=== PATIENT | female | born 1960 | race Caucasian/White ===

== ENCOUNTER 2020-12-31 08:46 | Outpatient (CLI) | payer OTHER ==
[2020-12-31 10:18] LABS: #Eosinphils 0.2 10x3/uL (0.0-0.5); #Monocytes 0.6 10x3/uL (0.0-1.1); #Neutrophils 4.5 10x3/uL (1.5-8.4); %Basophils 0.3 % (0.0-2.0); %Eosinophils 1.9 % (0.0-6.0); %Lymphocytes 32.8 % (18.0-47.0); %Monocytes 7.2 % (0.0-10.0); %Neutrophils 57.5 % (40.0-75.0); Hemoglobin 14.1 g/dL (12.0-15.5); Mean Corpuscular HGB CONC 32.6 g/dL (32.0-36.0); Mean Corpuscular Hemoglobin 29.1 pg (27.0-33.0); Mean Corpuscular Volume 89.1 fl (81.6-98.3); Platelet Count 253 10x3/uL (150-450); RBC Distribution Width 13.8 % (11.5-14.5); Red Blood Cell (RBC) Count 4.85 10x6/uL (3.90-5.03); White Blood Cell (WBC) Count 7.8 10x3/uL (3.5-10.5)
[2020-12-31 17:21] LABS: SARS-CoV-2 PCR by NAA Not Detected (NotDetected)
== END 2020-12-31 08:47 | disposition home or self-care (01) ==
LOC: LABBT 08:46
PROVIDERS: ATTEND Orthopaedic Surgery Hand Surgery
DX: Z01.818 Encounter for other preprocedural examination (principal); M65.4 Radial styloid tenosynovitis [de Quervain]; M72.0 Palmar fascial fibromatosis [Dupuytren]; Z20.822 Contact with and (suspected) exposure to COVID-19
CPT/HCPCS: 85025; 93005; 93010; U0003; U0005

== ENCOUNTER 2021-01-07 10:03 | Day surgery (SDC) | payer OTHER ==
[2020-12-31 15:21] VITALS: BMI 26.7
[2021-01-07] MEDS ORDERED: Scopolamine 1.5 mg/72 hour Patch ONE (13:12)
[2021-01-07] MEDS ORDERED: Fentanyl 100 MCG/2 ML VIAL ONE ×3 (13:12→17:48)
[2021-01-07] MEDS ORDERED: ceFAZolin Sodium (SDC) 2 GM/100 ML BAG ONE (13:12)
[2021-01-07] MEDS ORDERED: Collagenase Clostridium Hist. 0.9 MG VIAL FS SCH (14:15)
[2021-01-07] MEDS ORDERED: Bupivacaine PF 0.5% 30 ML VIAL ONE (15:08)
[2021-01-07] MEDS ORDERED: Bacitracin Zinc Ointment 30 gm TUBE ONE (15:08)
[2021-01-07] MEDS ORDERED: Neomycin-Polymyxin 1 ML AMP ONE (15:08)
[2021-01-07] MEDS ORDERED: Betamet Acet/Betamet Na Ph 30 MG/5 ML VIAL ONE (15:09)
[2021-01-07] MEDS ORDERED: ePHEDrine 50 MG/ML VIAL ONE (16:14)
[2021-01-07] MEDS ORDERED: Ondansetron PF 4 MG/2 ML Vial ONE ×2 (16:14→18:18)
[2021-01-07] MEDS ORDERED: Ketorolac Tromethamine 30 MG/ML VIAL ONE (17:36)
== END 2021-01-07 19:30 | disposition home or self-care (01) ==
LOC: SDC 10:03
PROVIDERS: ATTEND Orthopaedic Surgery Hand Surgery
PROC: 0LB60ZZ Excision of Left Lower Arm and Wrist Tendon, Open Approach (ICD-10-PCS; principal; 2021-01-07)
PROC: 3E013TZ Introduction of Destructive Agent into Subcutaneous Tissue, Percutaneous Approach (ICD-10-PCS; principal; 2021-01-07)
DX: M65.4 Radial styloid tenosynovitis [de Quervain] (principal); M72.0 Palmar fascial fibromatosis [Dupuytren]; K21.9 Gastro-esophageal reflux disease without esophagitis; I10 Essential (primary) hypertension; G47.30 Sleep apnea, unspecified; E78.5 Hyperlipidemia, unspecified; F17.210 Nicotine dependence, cigarettes, uncomplicated; Z88.8 Allergy status to other drugs, medicaments and biological substances
CPT/HCPCS: 88305; 89060; J0690; J0702; J0775; J1885; J2405; J3010; J3490; S0020

== ENCOUNTER 2022-04-10 08:34 | Outpatient (CLI) | payer OTHER | END 2022-04-10 08:35 | disposition home or self-care (01) | LOC: CT 08:34 | PROVIDERS: ATTEND Family Medicine | DX: S32.10XD Unspecified fracture of sacrum, subsequent encounter for fracture with routine healing (principal) | CPT/HCPCS: 72192 ==